=== PATIENT | male | born 1995 | race Caucasian/White ===

== ENCOUNTER 2018-04-22 12:03 | Emergency (ER) | payer OTHER ==
[~2018-04-22] VITALS: Ht 165.1 cm; Wt 65.8 kg
[2018-04-22 12:06] VITALS: BP 126/74
--- NOTE | 2018-04-22 12:14 | NUR ---
PT AMBULATES TO BED 4
--- NOTE | 2018-04-22 12:16 | NUR ---
PT. CAME INTO THE ED DUE TO R LOWER BACK PAIN X 3 WEEKS AND HEMATURIA X TODAY. PT. STATES " I HAVE A HISTORY OF KIDNEY STONES AND THIS PAIN HAS BEEN GETTING WORSE I THINK IT IS MY KIDNEYS". PT. C/O HEMATURIA SINCE TODAY, BURNING UPON URINATION. PT. C/O N/V X TODAY DENIES ANY BLOOD IN VOMIT. PT HAS 10/10 PAIN IN R LOWER BACK THAT RADIATES TO RLQ INTERMITTENT X TODAY.DENIES DIAHRRHEA. ABD FLAT AND SOFT AND TENDER UPON PALPATION IN RLQ. PT IS AFEBRILE AT THIS TIME. VSS. SAFETY PRECAUTIONS IMPLEMENTED. BED IN LOWEST POSITION. WILL CONTINUE TO MONITOR. ER NOTIFIED.
--- NOTE | 2018-04-22 12:23 | NUR ---
Patient being evaluated by physician at bedside.
[2018-04-22] MEDS ORDERED: KETOROLAC 30 MG/ML VIAL IVP ONE (12:25)
[2018-04-22] MEDS ORDERED: NACL 0.9% 1,000 ML IV SCH (12:25)
[2018-04-22] MEDS ORDERED: ONDANSETRON 4 MG/2 ML VIAL IVP ONE (12:25)
[2018-04-22 12:49] LABS: BASOPHILS # (AUTO) 0.1 K/uL (0.00-0.22); BASOPHILS % (AUTO) 0.5 % (0.0-2.0); EOSINOPHILS % (AUTO) 0.2 % (0.0-4.0); HEMATOCRIT 46.4 % (36-52); HEMOGLOBIN 15.7 g/dL (12.0-18.0); LYMPHOCYTES # (AUTO) 1.4 K/uL (2.0-11.5); LYMPHOCYTES % (AUTO) 12.4 % (20.5-51.1); MEAN CORPUSCULAR HEMOGLOBIN 31 pg (27-31); MEAN CORPUSCULAR HGB CONC 34 g/dL (33-37); MEAN CORPUSCULAR VOLUME 92.7 fL (80-94); MONOCYTES # (AUTO) 0.7 K/uL (0.8-1.0); MONOCYTES % (AUTO) 6.5 % (1.7-9.3); NEUTROPHILS # (AUTO) 9.3 K/uL (1.8-7.7); NEUTROPHILS % (AUTO) 80.4 % (42.2-75.2); PLATELET COUNT (AUTO) 251 K/uL (140-450); RED BLOOD CELL COUNT(AUTO) 5.01 MIL/uL (4.20-6.10); RED CELL DISTRIBUTION WIDTH 12.3 % (11.6-13.7); WHITE BLOOD COUNT (AUTO) 11.5 K/uL (4.8-10.8)
[2018-04-22 12:50] LABS: APPEARANCE,URINE SLIGHTLY HAZY (CLEAR); COLOR,URINE YELLOW (YELLOW)
[2018-04-22] MEDS ORDERED: MORPHINE SULFATE 4 MG/ML SYR IVP ONE (12:50)
[2018-04-22 12:51] LABS: BILIRUBIN,URINE NEGATIVE (NEGATIVE); BLOOD, URINE 3+ (NEGATIVE); LEUKOCYTE ESTERASE ,URINE NEGATIVE (NEGATIVE); NITRITE, URINE NEGATIVE (NEGATIVE); UGLUCOSE NEGATIVE (NEGATIVE)
[2018-04-22 13:04] LABS: RBC,URINE 20-50 /HPF (0-5); WBC,URINE 0-5 (RARE) /HPF (0-5)
[2018-04-22 13:05] LABS: CALCIUM OXALATE CRYSTALS,UR 0-10 /HPF (None Seen)
[2018-04-22 13:06] LABS: URINE AMORPHOUS URATE 3+ /HPF (None Seen)
--- NOTE | 2018-04-22 13:32 | NUR ---
PT. RESTING COMFORTABLY IN BED, RR EVEN AND UNLABORED. VSS. WILL CONTINUE TO MONITOR, HOB ELEVATED.
--- NOTE | 2018-04-22 13:51 | NUR ---
PT. TAKEN TO CT SCAN VIA WHEELCHAIR BY TECH.
--- NOTE | 2018-04-22 14:02 | NUR ---
PT. BACK FROM CT, RR EVEN AND UNLABORED. VSS. WILL CONTINUE TO MONITOR.
--- NOTE | 2018-04-22 14:43 | NUR ---
ASKED DR. VELASCO IF HE WANTS BLOOD CULTURES BEFORE ANITBIOTICS GIVEN. HE STATED HE WILL ORDER.
[2018-04-22] MEDS ORDERED: cefTRIAXone 1,000 MG VIAL ONE (15:03)
--- NOTE | 2018-04-22 15:31 | NUR ---
PT. RESTING COMFORTABLY IN BED, HOB ELEVATED. VSS. WILL CONTINUE TO MONITOR. PT. STATES " I DO NOT HAVE ANY PAIN AT THIS TIME".
--- NOTE | 2018-04-22 16:35 | NUR ---
PT. RESTING COMFORTABLY IN BED, RR EVEN AND UNLABORED. VSS. PT SLEEPING. WILL CONTINUE TO MONITOR.
[2018-04-22 16:44] LABS: ANION GAP 9.7 (8-16); CARBON DIOXIDE 28.1 mmol/L (21-32); CREATININE 1.5 mg/dL (0.7-1.3); POTASSIUM 3.8 mmol/L (3.5-5.1); TOTAL BILIRUBIN 1.1 mg/dL (0.0-1.0)
[2018-04-22 16:46] LABS: ALBUMIN 4.5 g/dL (3.4-5.0)
[2018-04-22 17:53] VITALS: BP 116/66
--- NOTE | 2018-04-22 17:53 | NUR ---
Patient discharged with v/s stable. Written and verbal after care instructions given and explained. Patient alert, oriented and verbalized understanding of instructions. Ambulatory with steady gait. All questions addressed prior to discharge. ID band removed. Patient advised to follow up with PMD. Rx of NORCO 5/325, FLOMAX 0.4MG, NAPROSYN 500MG, CEPHALAXIN 500MG, ZOFRANT ODT 4MG given. Patient educated on indication of medication including possible reaction and side effects. Opportunity to ask questions provided and answered.
== END 2018-04-22 17:53 | disposition home or self-care (01) ==
LOC: MED 12:03
DX: N20.1 Calculus of ureter (principal); Z87.442 Personal history of urinary calculi
CPT/HCPCS: 36415; 74176; 80053; 81001; 83605; 85025; 87040; 87086; 96361; 96365; 96375; 99285; J0696; J1885; J2405; J7030; J2270

== ENCOUNTER 2022-03-06 13:49 | Emergency (ER) | payer OTHER ==
[~2022-03-06] VITALS: Ht 165.1 cm; Wt 83.5 kg
[2022-03-06 14:27] VITALS: BP 125/73
--- NOTE | 2022-03-06 17:07 | NUR ---
PATIENT LEFT WITHOUT BEING SEEN BY DR. FIGUEROA. NO FURTHER CARE PROVIDED FOR PATIENT.
--- NOTE | 2022-03-06 17:10 | NUR ---
3 NO ANSWERS WHEN CALLED BY DR. FIGUEROA TO BE SEEN.
== END 2022-03-06 17:07 | disposition left against medical advice (07) ==
LOC: MED 13:49
DX: R42 Dizziness and giddiness (principal); R07.9 Chest pain, unspecified; Z53.21 Procedure and treatment not carried out due to patient leaving prior to being seen by health care provider
CPT/HCPCS: 93005